=== PATIENT | female | born 1950 | race Caucasian/White ===

== ENCOUNTER 2024-06-05 15:38 | Observation (INO) | payer MEDICARE, OTHER ==
[~2024-06-05] VITALS: Ht 157.5 cm; Wt 51.7 kg
[2024-06-05] MEDS: FAMOTIDINE 20 MG/2 ML VIAL IV ONE (16:53)
[2024-06-05] MEDS: SODIUM CHLORIDE 0.9% 1000ML 1,000 ML IV STA (16:53)
[2024-06-05 17:51] VITALS: PULSE 77; RESP 18; TEMP 98
[2024-06-05 20:00] VITALS: BP 170/88; PULSE 73; RESP 18; TEMP 97.6; O2SAT 100
[2024-06-05] MEDS ORDERED: LEVOCETIRIZINE D5 MG (22:40)
[2024-06-05] MEDS ORDERED: LOSARTAN POTAS100 MG PO (22:40)
[2024-06-05] MEDS ORDERED: ATORVASTATIN CA10 MG PO (22:40)
[2024-06-05] MEDS ORDERED: BYSTOLIC5 MG PO (22:40)
[2024-06-05] MEDS ORDERED: ZEGERID OTC 201 EACH (22:45)
[2024-06-05] MEDS ORDERED: MYRBETRIQ50 MG (22:45)
[2024-06-05] MEDS ORDERED: HYDROCHLOROTHIA25 MG PO (22:45)
[2024-06-05] MEDS ORDERED: PREMARIN0.3 MG PO ×2 (22:45)
[2024-06-05] MEDS ORDERED: ASPIRIN81 MG PO (22:45)
[2024-06-05] MEDS: SODIUM CHLORIDE 0.9% 1000ML 1,000 ML IV SCH (23:00)
[2024-06-06] VITALS: BP 160/72; PULSE 72; RESP 18; TEMP 97.6; O2SAT 100
[2024-06-06 04:00] VITALS: BP 155/76; PULSE 69; RESP 17; TEMP 97.9; O2SAT 100
[2024-06-06 06:45] LABS: BASOPHILS % 0.2 % (0.0-1.0); EOSINOPHILS # (AUTO) 0.2 (0.0-0.4); EOSINOPHILS % 1.8 % (0.0-6.0); HEMATOCRIT 25.5 % (34.2-44.1); HEMOGLOBIN 8.3 g/dL (12.0-16.0); LYMPHOCYTES % 34.9 % (18.0-39.1); MEAN CORPUSCULAR HEMOGLOBIN 32.2 pg (28-32); MEAN CORPUSCULAR HGB CONC 32.5 g/dL (31-35); MEAN CORPUSCULAR VOLUME 98.8 fL (81-99); MONOCYTES # (AUTO) 0.7 (0.2-0.8); MONOCYTES % 8.6 % (4.4-11.3); NEUTROPHILS # (AUTO) 4.6 (2.1-6.9); PLATELET COUNT 241 x10e3/uL (140-360); RED BLOOD COUNT 2.58 x10e6/uL (3.6-5.1); RED CELL DISTRIBUTION WIDTH 11.4 % (11.7-14.4); WHITE BLOOD COUNT 8.46 x10e3/uL (4.8-10.8)
[2024-06-06 06:57] LABS: ANION GAP 13.5 mmol/L (8-16); CALCIUM 8.8 mg/dL (8.4-10.2); CREATININE, SERUM 0.74 mg/dL (0.57-1.11); POTASSIUM 3.5 mmol/L (3.5-5.1)
[2024-06-06 08:22] VITALS: BP 186/90; PULSE 81; RESP 17; TEMP 97.6; O2SAT 100
[2024-06-06] MEDS ORDERED: MYRBETRIQ50 MG PO (08:31)
[2024-06-06 10:13] VITALS: BP 186/90; PULSE 81; RESP 17; TEMP 97.6; O2SAT 100
[2024-06-06 11:44] VITALS: BP 161/82; PULSE 75; RESP 17; TEMP 98.1; O2SAT 100
== END 2024-06-06 13:32 | disposition home or self-care (01) ==
LOC: FSED 15:46 → ERHOLD 16:52 → MED/SURG2 18:40
PROVIDERS: ADMIT Family Medicine; ATTEND Family Medicine
DX: K92.2 Gastrointestinal hemorrhage, unspecified (principal); Z86.0100 Personal history of colon polyps, unspecified; Z98.890 Other specified postprocedural states; I10 Essential (primary) hypertension; E78.5 Hyperlipidemia, unspecified; Z79.899 Other long term (current) drug therapy; Z79.818 Long term (current) use of other agents affecting estrogen receptors and estrogen levels
CPT/HCPCS: 36415; 74176; 80048; 85025; 99284; G0378 ×2; J0696; J7030 ×2

== ENCOUNTER 2025-05-25 08:51 | Emergency (ER) | payer MEDICARE, OTHER ==
[~2025-05-25] VITALS: Ht 157.5 cm; Wt 51.3 kg
[~2025-05-25 08:51] MED LIST: ASPIRIN81 MG PO; ATORVASTATIN CA10 MG PO; BYSTOLIC5 MG PO; HYDROCHLOROTHIA25 MG PO; LEVOCETIRIZINE D5 MG; LOSARTAN POTAS100 MG PO; MYRBETRIQ50 MG; MYRBETRIQ50 MG PO; PREMARIN0.3 MG PO; ZEGERID OTC 201 EACH
[2025-05-25] MEDS ORDERED: ESTRACE42.5 GM VG (09:08)
[2025-05-25] MEDS ORDERED: FINASTERIDE5 MG PO (09:08)
[2025-05-25] MEDS ORDERED: NEURONTIN100 MG PO (09:29)
[2025-05-25 09:40] VITALS: PULSE 73; RESP 16; TEMP 97.3; O2SAT 98
== END 2025-05-25 09:40 | disposition home or self-care (01) ==
LOC: FSED 08:57
DX: M54.42 Lumbago with sciatica, left side (principal); I10 Essential (primary) hypertension; E78.5 Hyperlipidemia, unspecified
CPT/HCPCS: 99283